=== PATIENT | male | born 1950 | race Caucasian/White ===

== ENCOUNTER → 2016-11-11 | Outpatient (CLI) | payer MEDICARE ==
[~2016-11-11] MED LIST: AMLO2.5T PO; ASPIRIN 325MG325 MG PO; ASPIRIN 81MG TA81 MG PO; BLOOD PRESSURE PILL PO; LISINOPRIL 20MG20 MG PO; LISINOPRIL20 MG PO; LOPRESSOR 25MG.25 MG PO; METOPROLOL TAR100 MG PO; PRAVACHOL 20MG.20 MG PO; PRAVASTATIN 20M20 MG PO
[2016-11-11 17:25] LABS: LYMPH # 2.8 K/mm3 (0.7-4.5); LYMPH % 31.1 % (10-50)
[2016-11-11 18:31] LABS: BUN 19 mg/dL (7-18); GFR (ESTIMATED) 55 ML/MIN (>60)
== END ==
LOC: LAB 17:16
PROVIDERS: Emergency Medicine
DX: I10 Essential (primary) hypertension (principal)

== ENCOUNTER → 2017-09-15 | Outpatient (CLI) | payer MEDICARE ==
[2017-09-15 18:56] LABS: BUN 15 mg/dL (7-18)
[2017-09-15 18:59] LABS: GFR (ESTIMATED) 51 ML/MIN (>60)
== END ==
LOC: LAB 18:09
PROVIDERS: Emergency Medicine
DX: I10 Essential (primary) hypertension (principal)

== ENCOUNTER → 2017-09-26 | Outpatient (CLI) | payer MEDICARE, OTHER ==
--- NOTE | 2017-09-26 16:05 | CARDIOVASCULAR REPORT ---
"Cerebrovascular Exam Indications: 785.9 Bruit. IMPRESSIONS 1. The bilateral vertebral arteries are patent with normal antegrade flow. 2. Study suggests 20-49% stenosis involving the right internal carotid artery and the left internal carotid artery, lower end of the scale. Carotid duplex study. Complete study and Doppler flow study including spectral analysis, color and bledsoe scale imaging. Height: Height: 175.3cm. Height: 69in. Location: Vascular laboratory. Patient status: Outpatient. Tables: Arterial flow: + +--------+--------+ |Location |V sys |V ed | + +--------+--------+ |Right CCA - proximal|72.3cm/s|16.5cm/s| + +--------+--------+ |Right CCA - distal |66.8cm/s|19.6cm/s| + +--------+--------+ |Right ECA |58.5cm/s|--------| + +--------+--------+ |Right ICA - proximal|36.5cm/s|11cm/s | + +--------+--------+ |Right ICA - mid |52.2cm/s|18.2cm/s| + +--------+--------+ |Right ICA - distal |56.9cm/s|14.8cm/s| + +--------+--------+ |Right vertebral |35.4cm/s|--------| + +--------+--------+ |Left CCA - proximal |66cm/s |14.1cm/s| + +--------+--------+ |Left CCA - distal |58.1cm/s|16.9cm/s| + +--------+--------+ |Left ECA |77.4cm/s|--------| + +--------+--------+ |Left ICA - proximal |46cm/s |10.2cm/s| + +--------+--------+ |Left ICA - mid |55.4cm/s|15.7cm/s| + +--------+--------+ |Left ICA - distal |43.7cm/s|14.4cm/s| + +--------+--------+ |Left vertebral |40.1cm/s|--------| + +--------+--------+ Velocity ratios: + + + + + + | |Right, V sys|Right, V ed|Left, V sys|Left, V ed| + + + + + + |Max ICA/dist CCA|0.85 |0.93 |0.95 |0.93 | + + + + + + (Report amended ) Electronically signed by: Larry Sevilla [id number]"
== END ==
LOC: RT 14:30
DX: R09.89 Other specified symptoms and signs involving the circulatory and respiratory systems (principal)